=== PATIENT | female | born 1970 | race Caucasian/White ===

== ENCOUNTER → 2021-01-04 | Outpatient (CLI) | payer MEDICARE, MEDICAID ==
[~2021-01-04] VITALS: Ht 165.1 cm; Wt 68.2 kg
[~2021-01-04] MED LIST: LIDOCAINE 1% INJ 20 ML 20 ML VIAL INJ ONE
--- NOTE | 2021-01-04 13:54 | Diagnostic Imaging Report ---
INDICATION: Left submandibular nodule. Patient presents for ultrasound guided fine needle aspiration. Patient brought to the procedure room placed on the table in supine position. Head was turned towards the right. Ultrasound imaging of the left neck was performed to evaluate appropriate entry site. Left neck was then prepped and draped in usual sterile fashion. Small amount of 1% lidocaine was utilized for local anesthesia. A total of 4 passes were made into the hypoechoic nodule in the left submandibular gland utilizing 25-gauge needles and fine-needle aspiration technique. Hemostasis was obtained using manual compression. Patient tolerated procedure well and left the department in stable condition. IMPRESSION: Ultrasound guided fine-needle aspiration of the hypoechoic nodule in the left submandibular gland. Pathology results are currently pending. Dictated by: Dictated on workstation # [id number]
== END ==
LOC: RAD 11:00
PROVIDERS: ATTEND Otolaryngology Otolaryngology/Facial Plastic Surgery
DX: K11.8 Other diseases of salivary glands (principal)
CPT/HCPCS: 10005

== ENCOUNTER 2021-02-05 06:21 | Outpatient (CLI) | payer MEDICARE, MEDICAID ==
[~2021-02-05] VITALS: Ht 165.1 cm; Wt 68.2 kg
[2021-02-05] MEDS ORDERED: DIAZEPAM (14:20)
[2021-02-05] MEDS ORDERED: PRISTIQ (14:20)
[2021-02-05] MEDS ORDERED: TOPIRAMATE (14:20)
[2021-02-05] MEDS ORDERED: BUSPIRONE HCL (14:20)
[2021-02-05] MEDS ORDERED: TRAZADONE (14:20)
[2021-02-05] MEDS ORDERED: ABAT250V IV (14:20)
[2021-02-06] MEDS ORDERED: DIAZ5TAB49 PO (08:39)
[2021-02-06] MEDS ORDERED: TOPI100T11 PO (08:39)
[2021-02-06] MEDS ORDERED: BUSP30TA2 PO (08:39)
[2021-02-06] MEDS ORDERED: TRAZ150T72 PO (08:39)
[2021-02-06] MEDS ORDERED: LEFL10TA16 PO (08:39)
[2021-02-06] MEDS ORDERED: DESV100T PO (08:39)
== END 2021-02-05 14:33 | disposition home or self-care (01) ==
LOC: PREOP 06:21
PROVIDERS: ATTEND Otolaryngology Otolaryngology/Facial Plastic Surgery
DX: Z01.818 Encounter for other preprocedural examination (principal)

== ENCOUNTER 2021-02-08 05:54 | Day surgery (SDC) | payer MEDICARE, MEDICAID ==
[2021-02-08] VITALS (10 sets, daily range): BP systolic 110–127; BP diastolic 77–98
[~2021-02-08] VITALS: Ht 165 cm; Wt 68.2 kg
[~2021-02-08 05:54] MED LIST changes: +ABAT250V IV; +BUSP30TA2 PO; +BUSPIRONE HCL; +DESV100T PO; +DIAZ5TAB49 PO; +DIAZEPAM; +LEFL10TA16 PO; -LIDOCAINE 1% INJ 20 ML 20 ML VIAL INJ ONE; +PRISTIQ; +TOPI100T11 PO; +TOPIRAMATE; +TRAZ150T72 PO; +TRAZADONE
[2021-02-08] MEDS ORDERED: LACTATED RINGERS 1,000 ML IV PRN (06:00)
--- NOTE | 2021-02-08 07:03 | Progress Note-Pre Operative ---
Pre-Operative Progress Note H&P Reviewed The H&P was reviewed, patient examined and no changes noted. Date Seen by Provider: Feb 08, 2021 Time Seen by Provider: 06:30 Date H&P Reviewed: Feb 08, 2021 Time H&P Reviewed: 06:30 Pre-Operative Diagnosis: Left Neck Mass ASHU CARDOSO MD Feb 08, 2021 07:03
[2021-02-08] MEDS ORDERED: MIDAZOLAM 2 MG/2 ML (VERSED) VIAL ONE (07:14)
[2021-02-08] MEDS ORDERED: ONDANSETRON 4 MG/2 ML (SDV) Z0FRAN ONE ×2 (07:14→07:58)
[2021-02-08] MEDS ORDERED: SCOPOLAMINE 1.5 MG (TRANSDERM-SCOP) PATCH ONE (07:14)
[2021-02-08] MEDS ORDERED: FAMOTIDINE 20MG/2ML IV (PEPCID) ONE (07:14)
[2021-02-08] MEDS ORDERED: FAMOTIDINE 20MG/2ML IV (PEPCID) IV ONE (07:15)
[2021-02-08] MEDS ORDERED: SCOPOLAMINE 1.5 MG (TRANSDERM-SCOP) PATCH TOP ONE (07:15)
[2021-02-08] MEDS ORDERED: MIDAZOLAM 2 MG/2 ML (VERSED) VIAL IV ONE (07:15)
[2021-02-08] MEDS ORDERED: ONDANSETRON 4 MG/2 ML (SDV) Z0FRAN IV ONE (07:15)
[2021-02-08] MEDS ORDERED: proPOfol 200 MG/20 ML (DIPRIVAN) VIAL IV ONE (07:58)
[2021-02-08] MEDS ORDERED: LIDOCAINE PF 2% 5 ML (XYLOCAINE) VIAL ONE (07:58)
[2021-02-08] MEDS ORDERED: fentaNYL INJ 100 MCG/2 ML AMP ONE (07:58)
[2021-02-08] MEDS ORDERED: LIDOCAINE/EPI 1%-1:100,000 (XYLOCAINE) 20ML ONE (10:12)
[2021-02-08] MEDS ORDERED: MUPIROCIN 2% OINT 22 GM (BACTROBAN) TUBE ONE (10:50)
[2021-02-08] MEDS ORDERED: SEVOFLURANE (ULTANE) 15 ML INHAL SOLN ONE (11:04)
--- NOTE | 2021-02-08 11:06 | Progress Note-Post Operative ---
Post-Operative Progess Note Surgeon (s)/Senior It Specialist (s) Surgeon ASHU CARDOSO MD Senior It Specialist n/a Pre-Operative Diagnosis Left Neck Mass Post-Operative Diagnosis same Post-Op Procedure Note Date of Procedure: Feb 08, 2021 Name of Procedure Performed: Biopsy of Left SUbmandibular Galnd- Description & Findings Description and Findings: n/a Anesthesia Type lma Estimated Blood Loss minimal Packing none. Specimen(s) collected/removed left submandibular gland nodule-path pending ASHU CARDOSO MD Feb 08, 2021 11:06
[2021-02-08] MEDS ORDERED: MEPERIDINE (DEMEROL) INJ 50 MG/ML IVP ONE (11:15)
[2021-02-08] MEDS ORDERED: ACETAMINOPHEN 325 MG TABLET PO PRN (11:15)
[2021-02-08] MEDS ORDERED: HYDROcodone/APAP 5 MG/325 MG (LORTAB) TAB PO PRN (11:15)
[2021-02-08] MEDS ORDERED: PROMETHAZINE INJ 25 MG/ML (PHENERGAN) AMP IVP ONE (11:15)
[2021-02-08] MEDS ORDERED: morphine INJ 10 MG/ML 1ML (SYR OR VIAL) IVP ONE (11:15)
[2021-02-08] MEDS ORDERED: ONDANSETRON 4 MG/2 ML (SDV) Z0FRAN IVP PRN (11:15)
[2021-02-08] MEDS ORDERED: ACHD5005 PO (12:09)
[2021-02-08] MEDS ORDERED: CEPH500T PO (12:09)
--- OUTSIDE RECORDS SUMMARY | 2021-02-08 16:18 | XMS REPORT | Clinical Summary ---
Author Author [facility] Organization [facility] Address Unknown Phone Unavailable Care Team Providers Care Human Resource Officer Name Role Phone PCP Unavailable Allergies Not on File Medications Not on file Active Problems Not on file Encounters Care Team Description Date Type Specialty Brad Gamez MD Other specified pre-operative examinatio n 02/05/2021 Hospital Lab Encounter Brad Gamez MD Other specified pre-operative examinatio n (Primary Dx) 02/05/2021 Transcribe Lab Orders from Last 3 Months Social History Date Tobacco Use Types Packs/Day Years Used Never Assessed Sex Assigned at Date Recorded Not on file Last Filed Vital Signs Not on file Plan of Treatment Not on file Procedures Comments Procedure Name Priority Date/Time Associated Diag nosis SARS-COV-2, GRECIA Routine 02/05/2021 Other specifie d (COVID-19) 9:10 AM CDT pre-operative exami nation from Last 3 Months Results * SARS-COV-2, GRECIA (COVID-19) (02/05/2021 9:10 AM CDT) SARS-CoV-2 PCR NegativeComment: This RT-PCR Negative S vernon Rios's test has been authorized by Hospital [facility] the FDA under an Emergency Use Authorization (EUA) for use by authorized laboratories. Specimen NASOPHARYNGEAL SWAB Performing Organization Address City/State/ZIP Code P kerri Number [address] [address] LABORATORIES [facility] [address] [place] [address] from Last 3 Months
--- OUTSIDE RECORDS SUMMARY | 2021-02-08 16:18 | XMS REPORT | Encounter Summary ---
Author Author [facility] Organization [facility] Address Unknown Phone Unavailable Care Team Providers Care Scroll Assembler Name Role Phone PCP Unavailable Encounter Details Care Team Description Date Type Department Brad Gamez MD [address] [facility] [address] [place], [place] [id number] Other specified pre-operative examinatio n (Primary Dx) [facility] [address] [place], [place] [id number] Social History Date Tobacco Use Types Packs/Day Years Used Never Assessed Sex Assigned at Date Recorded Not on file documented as of this encounter Plan of Treatment Not on filedocumented as of this encounter Results * SARS-COV-2, GRECIA (COVID-19) (02/05/2021 9:10 AM CDT) SARS-CoV-2 PCR NegativeComment: This RT-PCR Negative S vernon Rios's test has been authorized by [facility] the FDA under an Emergency Use Authorization (EUA) for use by authorized laboratories. Specimen NASOPHARYNGEAL SWAB Performing Organization Address City/State/ZIP Code P kerri Number [facility] [address] [place] [address] LABORATORIES [facility] [address] [place] [address] documented in this encounter Visit Diagnoses Diagnosis Other specified pre-operative examinati on - Primary documented in this encounter
--- OUTSIDE RECORDS SUMMARY | 2021-02-08 16:18 | XMS REPORT | Encounter Summary ---
Author Author [facility] Organization [facility] Address Unknown Phone Unavailable Care Team Providers Care Wholesale Agronomist Name Role Phone PCP Unavailable Encounter Details Care Team Description Date Type Department Brad Gamez MD [address] [facility] [address] [place] [address] Other specified pre-operative examinatio n 02/05/2021 [facility] al Encounter [address] [place], [place] [id number] Social History Date Tobacco Use Types Packs/Day Years Used Never Assessed Sex Assigned at Date Recorded Not on file documented as of this encounter Plan of Treatment Not on filedocumented as of this encounter Procedures Comments Procedure Name Priority Date/Time Associated Diag nosis SARS-COV-2, GRECIA Routine 02/05/2021 Other specifie d (COVID-19) 9:10 AM CDT pre-operative exami nation documented in this encounter Results * SARS-COV-2, GRECIA (COVID-19) (02/05/2021 9:10 AM CDT) SARS-CoV-2 PCR NegativeComment: This RT-PCR Negative S vernon Rios's test has been authorized by Hospital [facility] the FDA under an Emergency Use Authorization (EUA) for use by authorized laboratories. Specimen NASOPHARYNGEAL SWAB Performing Organization Address City/State/ZIP Code P kerri Number [facility] [address] [place], [place] [id number] LABORATORIES [facility] [address] [place] [address] documented in this encounter Visit Diagnoses Diagnosis Other specified pre-operative examinati on documented in this encounter
--- NOTE | 2021-02-08 16:33 | Anesthesia-General Post-Op ---
General Patient Condition Mental Status/LOC: Same as Preop Cardiovascular: Satisfactory Nausea/Vomiting: Absent Respiratory: Satisfactory Pain: Controlled Complications: Absent Post Op Complications Complications None Follow Up Care/Instructions Patient Instructions None needed. Anesthesia/Patient Condition Patient Condition Patient is doing well, no complaints, stable vital signs, no apparent adverse anesthesia problems. No complications reported per nursing. NADREW KUMAR CRNA Feb 08, 2021 16:33
== END 2021-02-08 12:55 ==
LOC: SDC 05:54
PROVIDERS: ATTEND Otolaryngology Otolaryngology/Facial Plastic Surgery
DX: K11.8 Other diseases of salivary glands (principal); F17.290 Nicotine dependence, other tobacco product, uncomplicated
CPT/HCPCS: 87081